=== PATIENT | female | born 1980 | race Caucasian/White ===

== ENCOUNTER 2016-10-22 15:50 | Inpatient (IN) | payer OTHER ==
[~2016-10-22] VITALS: Ht 160 cm; Wt 74.3 kg
[2016-10-22 17:05] LABS: HEMATOCRIT 34.8 % (36.0-46.0); MCH 30.7 PG (29.0-34.0); MCHC 35.1 G/DL (30.0-36.0); MCV 87.4 FL (83-99); MEAN PLAT.VOLUME 11.2 uM^3 (9.5-12.4); PLATELET COUNT 207 K/uL (156-360); RBC DIS.WIDTH-CV 12.1 % (11.8-14.6); RBC DIS.WIDTH-SD 39.3 % (39-53); RED BLOOD COUNT 3.98 M/uL (3.80-5.20); WHITE BLOOD COUNT 8.3 K/uL (4.1-10.2)
[2016-10-22 17:20] LABS: CHLORIDE 103 mEq/L (99-109)
[2016-10-22 17:21] LABS: POTASSIUM 3.9 mEq/L (3.7-5.4); SODIUM 134 mEq/L (136-147)
[2016-10-22 17:23] LABS: GLUCOSE 94 mg/dL (70-99)
[2016-10-22 17:24] LABS: ANION GAP 8 MEQ/L (2-14)
[2016-10-22 17:25] LABS: TOTAL BILIRUBIN 0.4 mg/dL (0.0-1.0)
[2016-10-22 17:26] LABS: ALKALINE PHOSPHATASE 64 IU/L (3-129); SERUM ETHYL ALCOHOL < 10 mg/dL
[2016-10-22 17:28] LABS: UREA NITROGEN (BUN) 13 mg/dL (9-23)
[2016-10-22 17:40] LABS: GFR ESTIMATE (CALCULATED) > 59 mL/min/
[2016-10-22 18:09] LABS: ADD MIUA? YES; BILIRUBIN NEGATIVE; BLOOD NEGATIVE; COLOR YELLOW ((YELLOW)); GLUCOSE (STRIP) NEGATIVE; KETONES 20; LEUKOCYTES NEGATIVE; NITRITE NEGATIVE; PROTEIN (STRIP) 30; SPECIFIC GRAVITY 1.018 (1.000-1.030); UROBILINOGEN 0.2 MG/DL (0.2-1.0)
[2016-10-22 18:14] LABS: BACTERIA RARE /HPF; EPITHELIAL CELLS 1+ /HPF; MUCUS 2+ /LPF; RED BLOOD CELLS 0-5 /HPF (0-5); WHITE BLOOD CELLS 0-5 /HPF (0-5)
[2016-10-22 18:42] LABS: AMPHETAMINE NEGATIVE (500 ng/mL); BARBITURATES NEGATIVE (200 ng/mL); BENZODIAZEPINES PRESUMPTIVE POSITIVE (150 ng/mL); COCAINE PRESUMPTIVE POSITIVE (150 ng/mL); METHADONE NEGATIVE (200 ng/mL); METHAMPHETAMINE NEGATIVE (500 ng/mL); OPIATES (MORPHINE) PRESUMPTIVE POSITIVE (100 ng/mL); OXYCODONE PRESUMPTIVE POSITIVE (100 ng/mL); PHENCYCLIDINE NEGATIVE (25 ng/mL); PROPOXYPHENE NEGATIVE (300 ng/mL); THC CANNABINOIDS NEGATIVE (50 ng/mL); TRICYCLIC ANTIDEPRESSANTS NEGATIVE (300 ng/mL)
[2016-10-22 18:43] LABS: ADD MEDTOX COMMENT Y; INTERNAL CONTROLS VALID? YES
[2016-10-22] MEDS ORDERED: ZUBSOLV 5.7-1.1 EACH SL (19:17)
[2016-10-22 19:32] LABS: BENZODIAZEPINES, URINE SCREEN POSITIVE (200 ng/mL)
[2016-10-22 19:46] VITALS: BP 134/76
[2016-10-23 07:35] VITALS: BP 103/63
[2016-10-23 14:58] VITALS: BP 102/50
[2016-10-23 21:19] VITALS: BP 90/55
[2016-10-24 07:51] VITALS: BP 93/52
[2016-10-24 15:52] VITALS: BP 88/50
[2016-10-24 21:42] VITALS: BP 106/65
[2016-10-25 07:27] VITALS: BP 93/53
[2016-10-25 08:49] VITALS: BP 105/71
[2016-10-25 15:39] VITALS: BP 108/55; BP 129/78
[2016-10-26 07:54] VITALS: BP 100/60
[2016-10-26 16:00] VITALS: BP 98/52
[2016-10-26 19:24] VITALS: BP 86/48
[2016-10-27 08:03] VITALS: BP 83/54
[2016-10-27 08:49] VITALS: BP 113/75
[2016-10-27 15:38] VITALS: BP 92/50
[2016-10-27 17:34] VITALS: BP 109/55
[2016-10-28 07:52] VITALS: BP 102/65
[2016-10-28] MEDS ORDERED: PRISTIQ50 MG PO (09:43)
[2016-10-28] MEDS ORDERED: METRONIDAZOLE500 MG PO (09:43)
[2016-10-28] MEDS ORDERED: GABAPENTIN100 MG PO (09:43)
[2016-10-28] MEDS ORDERED: LAMICTAL25 MG PO (09:43)
== END 2016-10-28 13:36 | disposition home or self-care (01) | DRG 885 ==
LOC: EME 15:50 → EDOF 19:05 → 1WEST 19:05
PROVIDERS: Emergency Medicine
DX: F31.5 Bipolar disorder, current episode depressed, severe, with psychotic features (principal); F11.23 Opioid dependence with withdrawal; R45.851 Suicidal ideations; F41.1 Generalized anxiety disorder; F14.10 Cocaine abuse, uncomplicated; F13.10 Sedative, hypnotic or anxiolytic abuse, uncomplicated; Z81.8 Family history of other mental and behavioral disorders; Z91.14 Patient's other noncompliance with medication regimen
CPT/HCPCS: 80053; 81003; 84999; 85027; 90837; 97150 GO; 97165 GO; 99281; 99285; G0480; J0572; Q0169; Q0177

== ENCOUNTER 2017-02-03 20:25 | Inpatient (IN) | payer OTHER ==
[~2017-02-03] VITALS: Ht 162.6 cm; Wt 72.1 kg
[~2017-02-03 20:25] MED LIST: GABAPENTIN100 MG PO; LAMICTAL25 MG PO; METRONIDAZOLE500 MG PO; PRISTIQ50 MG PO; ZUBSOLV 5.7-1.1 EACH SL
[2017-02-03 20:48] LABS: BASOPHIL COUNT 0.1 K/uL (0-0.1); EOSINOPHIL (%) 0.4 % (0-5); EOSINOPHIL COUNT 0.1 K/uL (0-0.3); HEMATOCRIT 35.5 % (36.0-46.0); IMMATURE GRANULOCYTE (%) 1.2 % (0.0-0.7); IMMATURE GRANULOCYTE COUNT 0.2 K/uL; LYMPHOCYTE COUNT 3.5 K/uL (1.0-2.8); MCH 29.2 PG (29.0-34.0); MCHC 34.4 G/DL (30.0-36.0); MCV 84.9 FL (83-99); MEAN PLAT.VOLUME 10.6 uM^3 (9.5-12.4); MONOCYTE (%) 7.1 % (3-12); MONOCYTE COUNT 1.3 K/uL (0-0.8); NEUTROPHIL (%) 71.9 % (45-76); PLATELET COUNT 273 K/uL (156-360); RBC DIS.WIDTH-CV 13.6 % (11.8-14.6); RBC DIS.WIDTH-SD 42.1 % (39-53); RED BLOOD COUNT 4.18 M/uL (3.80-5.20); WHITE BLOOD COUNT 18.1 K/uL (4.1-10.2)
[2017-02-03 21:05] LABS: AMYLASE 86 IU/L (1-118); CHLORIDE 106 mEq/L (99-109); POTASSIUM 4.1 mEq/L (3.7-5.4); SODIUM 136 mEq/L (136-147)
[2017-02-03 21:06] LABS: GLUCOSE 113 mg/dL (70-99)
[2017-02-03 21:08] LABS: ANION GAP 10 MEQ/L (2-14)
[2017-02-03 21:10] LABS: GFR ESTIMATE (CALCULATED) > 59 mL/min/; SERUM ETHYL ALCOHOL < 10 mg/dL
[2017-02-03 21:11] LABS: UREA NITROGEN (BUN) 17 mg/dL (9-23)
[2017-02-03 21:13] LABS: LIPASE 32 U/L (1.0-51.0)
[2017-02-03 21:20] LABS: QUANTITATIVE HCG < 4.0 MIU/ML
[2017-02-03 22:22] LABS: ADD MIUA? YES; BILIRUBIN NEGATIVE; BLOOD MODERATE; COLOR YELLOW ((YELLOW)); GLUCOSE (STRIP) NEGATIVE; KETONES NEGATIVE; LEUKOCYTES NEGATIVE; NITRITE NEGATIVE; PROTEIN (STRIP) NEGATIVE; UROBILINOGEN 0.2 MG/DL (0.2-1.0)
[2017-02-03 22:27] LABS: BACTERIA NONE SEEN /HPF; EPITHELIAL CELLS RARE /HPF; MUCUS TRACE /LPF; RED BLOOD CELLS 20-30 /HPF (0-5); UCUL ADDED? NO; WHITE BLOOD CELLS 0-5 /HPF (0-5)
[2017-02-03 22:35] LABS: ADD MEDTOX COMMENT Y; AMPHETAMINE NEGATIVE (500 ng/mL); BARBITURATES NEGATIVE (200 ng/mL); BENZODIAZEPINES PRESUMPTIVE POSITIVE (150 ng/mL); COCAINE NEGATIVE (150 ng/mL); INTERNAL CONTROLS VALID? YES; METHADONE NEGATIVE (200 ng/mL); METHAMPHETAMINE NEGATIVE (500 ng/mL); OPIATES (MORPHINE) PRESUMPTIVE POSITIVE (100 ng/mL); OXYCODONE PRESUMPTIVE POSITIVE (100 ng/mL); PHENCYCLIDINE NEGATIVE (25 ng/mL); PROPOXYPHENE NEGATIVE (300 ng/mL); THC CANNABINOIDS NEGATIVE (50 ng/mL); TRICYCLIC ANTIDEPRESSANTS NEGATIVE (300 ng/mL)
[2017-02-03 22:48] LABS: SPECIFIC GRAVITY 1.076 (1.000-1.030)
[2017-02-03 22:57] LABS: BENZODIAZEPINES, URINE SCREEN POSITIVE (200 ng/mL)
[2017-02-03 23:09] LABS: TROP-I INTERPRETATION NEGATIVE; TROPONIN-I < 0.01 ng/mL (0.0-0.30)
[2017-02-03] MEDS ORDERED: KLONOPIN1 MG PO (23:11)
[2017-02-03] MEDS ORDERED: SEROQUEL300 MG PO (23:12)
[2017-02-03] MEDS ORDERED: VISTARIL25 MG PO (23:13)
[2017-02-03] MEDS ORDERED: B-COMPLEX-VITA1 EACH PO (23:14)
[2017-02-03] MEDS ORDERED: WELLBUTRIN SR150 MG PO (23:18)
[2017-02-03] MEDS ORDERED: NEURONTIN100 MG PO (23:24)
[2017-02-04 00:24] VITALS: BP 119/84
[2017-02-04 03:10] VITALS: BP 106/60
[2017-02-04 06:49] LABS: EOSINOPHIL (%) 0.1 % (0-5); HEMATOCRIT 31.2 % (36.0-46.0); IMMATURE GRANULOCYTE (%) 0.3 % (0.0-0.7); INSTRUMENT ABS NEUTROPHIL CT 8.5 K/uL; LYMPHOCYTE COUNT 2.7 K/uL (1.0-2.8); MCH 29.5 PG (29.0-34.0); MCHC 34.3 G/DL (30.0-36.0); MEAN PLAT.VOLUME 10.7 uM^3 (9.5-12.4); MONOCYTE (%) 8.6 % (3-12); MONOCYTE COUNT 1.1 K/uL (0-0.8); NEUTROPHIL (%) 68.9 % (45-76); NEUTROPHIL COUNT 8.5 K/uL (1.8-6.4); PLATELET COUNT 252 K/uL (156-360); RBC DIS.WIDTH-CV 13.8 % (11.8-14.6); RBC DIS.WIDTH-SD 43.1 % (39-53); RED BLOOD COUNT 3.63 M/uL (3.80-5.20); WHITE BLOOD COUNT 12.4 K/uL (4.1-10.2)
[2017-02-04 07:25] VITALS: BP 114/72
[2017-02-04 07:36] LABS: ALKALINE PHOSPHATASE 57 IU/L (3-129); ANION GAP 8 MEQ/L (2-14); CHLORIDE 106 MEQ/L (99-109); GFR ESTIMATE (CALCULATED) > 59 mL/min/; GLUCOSE 97 mg/dL (70-99); MAGNESIUM 1.7 mg/dl (1.3-2.7); POTASSIUM 3.8 MEQ/L (3.7-5.4); SAMPLE HEMOLYSIS CHECK 0; SAMPLE ICTERIC CHECK 0; SAMPLE LIPEMIA CHECK 0; SODIUM 137 MEQ/L (136-147); TOTAL BILIRUBIN 0.4 MG/DL (0.0-1.0); UREA NITROGEN (BUN) 10 mg/dL (9-23)
[2017-02-04 11:15] VITALS: BP 107/71
[2017-02-04 15:00] VITALS: BP 128/79
[2017-02-04 20:11] VITALS: BP 115/74
[2017-02-05] VITALS (7 sets, daily range): BP systolic 100–119; BP diastolic 65–86
[2017-02-06 04:07] VITALS: BP 106/67
[2017-02-06 09:05] VITALS: BP 116/65
[2017-02-06 12:04] VITALS: BP 123/60
[2017-02-06 20:19] VITALS: BP 118/73
[2017-02-06 23:40] VITALS: BP 106/70
[2017-02-07 03:38] VITALS: BP 121/63
[2017-02-07 08:13] VITALS: BP 108/75
[2017-02-07 12:40] LABS: EOSINOPHIL (%) 3.5 % (0-5); EOSINOPHIL COUNT 0.4 K/uL (0-0.3); HEMATOCRIT 33.1 % (36.0-46.0); IMMATURE GRANULOCYTE (%) 0.3 % (0.0-0.7); INSTRUMENT ABS NEUTROPHIL CT 7.5 K/uL; LYMPHOCYTE COUNT 1.7 K/uL (1.0-2.8); MCH 29.8 PG (29.0-34.0); MCHC 34.4 G/DL (30.0-36.0); MCV 86.4 FL (83-99); MEAN PLAT.VOLUME 10.2 uM^3 (9.5-12.4); MONOCYTE (%) 8.2 % (3-12); MONOCYTE COUNT 0.9 K/uL (0-0.8); NEUTROPHIL (%) 71.3 % (45-76); NEUTROPHIL COUNT 7.5 K/uL (1.8-6.4); PLATELET COUNT 217 K/uL (156-360); RBC DIS.WIDTH-CV 13.8 % (11.8-14.6); RBC DIS.WIDTH-SD 42.6 % (39-53); RED BLOOD COUNT 3.83 M/uL (3.80-5.20); WHITE BLOOD COUNT 10.5 K/uL (4.1-10.2)
[2017-02-07 13:07] LABS: ALKALINE PHOSPHATASE 63 IU/L (3-129); ANION GAP 6 MEQ/L (2-14); CHLORIDE 104 MEQ/L (99-109); GFR ESTIMATE (CALCULATED) > 59 mL/min/; GLUCOSE 81 mg/dL (70-99); MAGNESIUM 1.7 mg/dl (1.3-2.7); POTASSIUM 4.2 MEQ/L (3.7-5.4); SAMPLE HEMOLYSIS CHECK 0; SAMPLE ICTERIC CHECK 0; SAMPLE LIPEMIA CHECK 0; SODIUM 139 MEQ/L (136-147); TOTAL BILIRUBIN 0.4 MG/DL (0.0-1.0); UREA NITROGEN (BUN) 7 mg/dL (9-23)
[2017-02-07 20:24] VITALS: BP 122/75
[2017-02-07 23:37] VITALS: BP 119/74
[2017-02-08 05:40] VITALS: BP 109/58
[2017-02-08 07:42] VITALS: BP 98/61
[2017-02-08 13:17] LABS: INTERNAL CONTROL VALID? YES
[2017-02-08 16:13] VITALS: BP 104/60
[2017-02-08 20:30] VITALS: BP 118/70
[2017-02-08 23:46] VITALS: BP 108/65
[2017-02-09 04:06] VITALS: BP 109/71
[2017-02-09 09:08] VITALS: BP 107/68
[2017-02-09 11:23] VITALS: BP 103/69
[2017-02-09 15:59] VITALS: BP 110/61
[2017-02-09 18:39] VITALS: BP 110/59
[2017-02-09 23:30] VITALS: BP 116/69
[2017-02-10 03:42] VITALS: BP 110/71
[2017-02-10 08:05] VITALS: BP 113/70
[2017-02-10 12:05] VITALS: BP 111/72
[2017-02-10 16:06] VITALS: BP 100/63
[2017-02-10 20:40] VITALS: BP 111/69
[2017-02-10 23:36] VITALS: BP 108/59
[2017-02-11 04:25] VITALS: BP 102/68
[2017-02-11 07:33] VITALS: BP 93/58
[2017-02-11 11:15] VITALS: BP 111/68
[2017-02-11 16:51] VITALS: BP 113/68
[2017-02-11 20:13] VITALS: BP 112/68
[2017-02-11 23:54] VITALS: BP 109/66
[2017-02-12 04:24] VITALS: BP 109/62
[2017-02-12 07:25] VITALS: BP 106/65
[2017-02-12] MEDS ORDERED: OXYCODONE HCL5 MG PO (10:37)
[2017-02-12] MEDS ORDERED: FENTANYL1 EAC4 TD (10:37)
[2017-02-12] MEDS ORDERED: BACTRIM,SEPT1 TABLET PO (10:41)
[2017-02-12] MEDS ORDERED: TYLENOL REGULA325 MG PO (10:55)
[2017-02-12 11:10] VITALS: BP 109/67
[2017-02-12 16:33] VITALS: BP 103/71
== END 2017-02-12 17:47 | DRG 552 ==
LOC: TRA 20:25 → EME 20:25 → EDOF 22:41 → 3EAST 22:41 → ENRESERV 22:43 → 3EAST 02-04 00:06
PROVIDERS: Emergency Medicine; Surgery
DX: S32.011A Stable burst fracture of first lumbar vertebra, initial encounter for closed fracture (principal); S22.41XA Multiple fractures of ribs, right side, initial encounter for closed fracture; S22.20XA Unspecified fracture of sternum, initial encounter for closed fracture; V47.5XXA Car driver injured in collision with fixed or stationary object in traffic accident, initial encounter; N39.0 Urinary tract infection, site not specified; R31.9 Hematuria, unspecified; B96.20 Unspecified Escherichia coli [E. coli] as the cause of diseases classified elsewhere; F11.10 Opioid abuse, uncomplicated; F13.10 Sedative, hypnotic or anxiolytic abuse, uncomplicated; F14.10 Cocaine abuse, uncomplicated; F31.9 Bipolar disorder, unspecified; R33.9 Retention of urine, unspecified
CPT/HCPCS: 70450; 71010; 71260; 72125; 72129; 72132; 72148; 74177; 80048; 80053; 81003; 82150; 82272; 83690; 83735; 84100; 84484; 84702; 84999; 85025; 86900; 86901; 87077; 87086; 87186; 97530 GO; 97530 GP; 99281; 99285; G0480; J1170; J1650; J2270; J2405; J7120

== ENCOUNTER 2017-02-21 17:13 | Emergency (ER) | payer OTHER ==
[~2017-02-21] VITALS: Ht 170.2 cm; Wt 71.4 kg
[~2017-02-21 17:13] MED LIST changes: +B-COMPLEX-VITA1 EACH PO; +BACTRIM,SEPT1 TABLET PO; +FENTANYL1 EAC4 TD; +KLONOPIN1 MG PO; +NEURONTIN100 MG PO; +OXYCODONE HCL5 MG PO; +SEROQUEL300 MG PO; +TYLENOL REGULA325 MG PO; +VISTARIL25 MG PO; +WELLBUTRIN SR150 MG PO
[2017-02-21 22:08] VITALS: BP 91/52
== END 2017-02-21 22:10 ==
LOC: EME 17:13
DX: R53.83 Other fatigue (principal); T40.2X5A Adverse effect of other opioids, initial encounter
CPT/HCPCS: 99281; 99284